=== PATIENT | female | born 1985 | race Caucasian/White ===

== ENCOUNTER 2016-04-14 12:07 | Emergency (ER) | payer MEDICAID ==
[2016-04-14 12:14] VITALS: RESP 16; TEMP 97.9
[2016-04-14] MEDS ORDERED: NS 1,000 ML IV ONE (14:05)
--- NOTE | 2016-04-14 14:20 | EDPHY ---
H & P Stated Complaint: 4 wks cramping/spotting pain more r sided/no us Time Seen by Provider: 04/14/16 14:03 HPI/ROS: CHIEF COMPLAINT: Vaginal bleeding with HISTORY OF PRESENT ILLNESS: The patient s a 30 year old female about 4 weeks , presenting with vaginal bleeding for the past 2 days. The patient had a positive at home test. Her LMP was 12/13. Over the past two days she 's been having vaginal bleeding and passed a clot today. The patient additionally complains of some lower abdominal cramping that is moderate in nature. The patient has history of ruptured ectopic requiring surgery as well as elected . She denies lightheadedness or severe abdominal pain. REVIEW OF SYSTEMS: Aside from elements discussed in the HPI, a comprehensive 10-point review of systems was reviewed and is negative. PAST MEDICAL HISTORY: G3.P0.A2. No history of PID or IUD use. SOCIAL HISTORY: From [place], recently moved to the [facility]. VITAL SIGNS: Reviewed by me GENERAL: Well-developed, well-nourished, resting comfortably in no respiratory distress. HEENT: Atraumatic. Eyes: No icterus, no injection. Mouth: moist mucous membranes. No erythema or lesions. Neck: supple with no adenopathy. LUNGS: Clear to auscultation bilaterally, no wheezes, rhonchi or rales. CARDIAC: Regular rate and rhythm, no rubs, murmurs or gallops. ABDOMEN: Soft, mild suprapubic tenderness. Nondistended, bowel sounds normal. BACK: No CVA tenderness. EXTREMITIES: No trauma. No edema. Range of motion is normal throughout. NEURO: Alert and oriented, grossly nonfocal. SKIN: Warm and dry, no rash. PSYCHIATRIC: Normal mentation, no agitation. Portions of this note were transcribed by a medical assistant ob gyn. I personally performed a history, physical exam, medical decision making, and confirmed accuracy of information the transcribed note. Source: Patient Exam Limitations: No limitations - Personal History LMP (Females 10-55): Current Tetanus/Diphtheria Vaccine: Yes - Medical/Surgical History Hx Asthma: No Hx Chronic Respiratory Disease: No Hx Diabetes: No Hx Cardiac Disease: No Hx Renal Disease: No Hx Cirrhosis: No Hx Alcoholism: No Hx HIV/AIDS: No Hx Splenectomy or Spleen Trauma: No Other PMH: PSH- ECTOPIC PREG(left tube removed) - Social History Smoking Status: Current every day smoker Constitutional: Initial Vital Signs Temperature (C) 36.6 C 04/14/16 12:11 Heart Rate 95 04/14/16 12:11 Respiratory Rate 16 04/14/16 12:11 Blood Pressure 116/72 04/14/16 12:11 O2 Sat (%) 97 04/14/16 12:11 O2 Delivery Mode Room Air Allergies/Adverse Reactions: No Known Allergies Allergy (Verified 04/14/16 12:11) Home Medications: Medication Instructions Recorded Hydrocodone/APAP 5/325 [Houston 1 tab PO Q6H PRN #10 tab 04/14/16 5/325 (RX)] Medical Decision Making - Diagnostics Imaging: Results: An ultrasound scan of the pelvis was obtained. The results of the study were reported to me: Single IUP with a heart rate of 70 there is a separate potentially involuting cyst in the uterus which may represent a failed 2nd . Ovaries are normal bilaterally. The study was read by Dr. Zamorano. I viewed the images myself on the PACS system. I discussed the results of the study with the patient. ED Course/Re-evaluation: Plan for Obstetrics ultrasound, BHCG quant, ABO/RH type, and UA. Patient's laboratory evaluation demonstrates a positive test, quantitative HCG of 23,300 , and AB/RH of 0+. I discussed results of the ultrasound with the patient. I discussed patient's care with Dr. Shields. Patient understands importance of repeat ultrasound as well as repeat beta quantitative HCGs. Usual precautions regarding vaginal bleeding, increasing vaginal bleeding, passage of tissue or clots, fainting, or other concerns was given. Differential Diagnosis: Differential diagnosis of the patient's vaginal bleeding includes dysfunctional uterine bleeding, threatened miscarriage, spontaneous miscarriage, incomplete miscarriage, ectopic , trauma, cervicitis, ovarian cysts, uterine fibroids, uterine cancer, cervical cancer, and infection. - Data Points Laboratory Results: Laboratory Results 04/14/16 14:09 04/14/16 14:09 Medications Given: Discontinued Medications Sodium Chloride (Ns) 1,000 mls @ 0 mls/hr IV ONCE ONE PRN Reason: Wide Open Stop: 04/14/16 14:06 Last Admin: 04/14/16 14:33 Dose: 1,000 mls Departure - Departure Disposition: Home, Routine, Self-Care Clinical Impression: Threatened miscarriage in early , Vaginal bleeding in Condition: Good Instructions: Threatened Miscarriage (ED) Additional Instructions: Please drink plenty of fluid. Tylenol as needed for pain and cramping. You have also been given a prescription for Houston to use for severe pain. Pelvic rest until a vaginal bleeding stops. This means no tampons, douching, intercourse. You MUST have a repeat quantitative HCG drawn in 48 hours. That order has been sent to the lab. Please come back to the outpatient lab here at [facility] to have that drawn. Please make an appointment on Thursday or on with Dr. Shields's office. At that time they will perform a repeat ultrasound as well as discussed the results of your quantitative HCG. Referrals: NONE *PRIMARY CARE P,. [Primary Care Provider] - As per Instructions Dana Shields DO [Doctor of Osteopathy] - As per Instructions Prescriptions: Hydrocodone/APAP 5/325 [Houston 5/325 (RX)] 1 tab PO Q6H PRN #10 tab PRN Reason: Pain Report Scribed for: Otilia Ansari Report Scribed by: Olivia Cash Date of Report: 04/14/16 Time of Report: 14:20
[2016-04-14 14:22] LABS: % IMMATURE GRANULYOCYTES 0.4 % (0.0-1.1); ABSOLUTE IMMATURE GRANULOCYTES 0.04 10^3/uL (0.00-0.10); ADD DIFF? NO; ADD MORPH? NO; ADD SCAN? NO; ATYPICAL LYMPHOCYTE FLAG 10 (0-99); FRAGMENT RBC FLAG 20 (0-99); HEMATOCRIT 43.6 % (38.0-47.0); HEMOGLOBIN 14.9 g/dL (12.6-16.3); LEFT SHIFT FLG 0 (0-99); LIPEMIA HEMOLYSIS FLAG 90 (0-99); MEAN CELL HEMOGLOBIN 31.4 pg (27.9-34.1); MEAN CELL HEMOGLOBIN CONCENTR. 34.2 g/dL (32.4-36.7); PLATELET CLUMPS FLAG 10 (0-99); PLATELET COUNT 295 10^3/uL (150-400); RED BLOOD CELL COUNT 4.74 10^6/uL (4.18-5.33); RED CELL DISTRIBUTION WIDTH 12.6 % (11.5-15.2)
[2016-04-14 14:47] LABS: ANION GAP 12 mEq/L (8-16); CALCIUM 9.6 mg/dL (8.5-10.4); CARBON DIOXIDE 24 mEq/l (22-31); CHLORIDE 101 mEq/L (97-110); CREATININE 0.6 mg/dL (0.6-1.0); GLOMERULAR FILTRATION RATE > 60; GLUCOSE 84 mg/dL (70-100); POTASSIUM 3.9 mEq/L (3.5-5.2); SODIUM 137 mEq/L (134-144)
--- NOTE | 2016-04-14 15:29 | US ---
OB sonogram, first trimester HISTORY: Pelvic pain and bleeding x2 days, LMP March 04, 2016, history of left-sided ectopic pregn elida in 2011 TECHNIQUE: Transabdominal and transvaginal scanning. Transvaginal scanning is performed to better deloris luate the intrauterine contents and adnexa. COMPARISON: None FINDINGS: A yolk sac and 2.3 mm gestational pole are identified = 5 weeks 6 day gestation. hear t rate = 77-71 bpm. There is a heterogeneous fluid collection, separate from the gestational sac, in the left side of the uterus which measures approximately 1.5 x 1.2 x 1.6 cm. This has the appearance of a collapsing cyst and could possibly represent a failed second IUP or a degenerating fibroid. Both maternal ovaries are visualized and appear normal and have normal Doppler blood flow within them. Th ere is no free fluid. IMPRESSION: 1. Cervantes viable IUP, with a slow heart rate. 2. Suspect second failed IUP, (diamniotic dichorionic). 3. Normal ovaries. Recommendation: Short-term follow-up pelvic sonogram coupled with serial quantitative hCG. Results discussed with Dr. Ansari at 3:26 pm.
[2016-04-14 16:09] VITALS: BP 121/77; PULSE 84; O2SAT 98
== END 2016-04-14 16:07 | disposition home or self-care (01) ==
DX: O20.0 Threatened abortion (principal); F17.200 Nicotine dependence, unspecified, uncomplicated; Z3A.01 Less than 8 weeks gestation of pregnancy